=== PATIENT | female | born 1975 | race Caucasian/White ===

== ENCOUNTER → 2024-09-27 | Outpatient (CLI) | payer BC ==
[2024-09-27 18:48] LABS: Creatinine, Urine Random 84.4 mg/dL (27.00-270.00)
[2024-09-27 18:50] LABS: Microalb/Creat Ratio UR, Rand 10.13 mg/g (0.000-30.000); Microalbumin, Random Urine 8.55 mg/L (0.000-20.000)
[2024-10-04 12:12] LABS: HPV HIGH RISK BY TMA Not Detected; HPV SOURCE Cervical
== END ==
LOC: LAB 14:18 → LAB SHORT 14:18
PROVIDERS: Family Medicine
DX: Z01.419 Encounter for gynecological examination (general) (routine) without abnormal findings (principal); E11.65 Type 2 diabetes mellitus with hyperglycemia
CPT/HCPCS: 82043; 82570; 87624; G0123